=== PATIENT | female | born 1965 | race Caucasian/White ===

== ENCOUNTER 2017-07-04 19:47 | Emergency (ER) | payer OTHER ==
[2017-07-04] MEDS ORDERED: Ondansetron INJ* 2 MG/ML VIAL IV ONE (20:58)
[2017-07-04] MEDS ORDERED: Morphine INJ* 10 MG/ML 1 ML CARPUJECT IV ONE (20:58)
[2017-07-04] MEDS ORDERED: Pantoprazole IV* 40 MG IV ONE (21:00)
[2017-07-04 21:43] LABS: ABS Basophils 0.1 10^3/ul (0-0.2); ABS Eosinophils 0.1 10^3/ul (0-0.6); ABS Lymphocytes 3.7 10^3/ul (1.0-4.8); ABS Monocytes 0.9 10^3/ul (0-0.8); ABS Neutrophils 4.3 10^3/ul (1.5-7.7); ABS Nucleated RBC 0 10^3/ul; Eosinophil % 1.4 % (0-6); Hematocrit 36 % (35-47); Hemoglobin 12.2 g/dl (12.0-16.0); Lymphocyte % 40.4 % (25-47); Mean Corpuscular HGB Conc 34 g/dl (31-36); Mean Corpuscular Hemoglobin 30 pg (27-31); Mean Corpuscular Volume 89 fL (80-97); Mean Platelet Volume 8 um3 (7.4-10.4); Nucleated Red Blood Cells % 0.1; Platelet Count 297 10^3/ul (150-450); Red Blood Count 4.06 10^6/ul (4.0-5.4); Red Cell Distribution Width 15 % (10.5-15); White Blood Count 9.1 10^3/ul (3.5-10.8)
--- NOTE | 2017-07-04 21:50 | RAD ---
Indication: Chest pain. Single frontal view of the chest performed at 2123 hours was reviewed. No prior study is available for comparison. No mediastinal shift is noted. Heart is of normal size and configuration. Lung lazaro appear clear. IMPRESSION: NO ACTIVE CARDIOPULMONARY DISEASE IS NOTED.
[2017-07-04 21:55] LABS: INR 0.98 (0.77-1.02)
[2017-07-04 22:01] LABS: EGFR Non-African American 60.1 (>60)
[2017-07-04] MEDS ORDERED: Metoclopramide IV* 5 MG/ML 2 ML VIAL IV SLOW PU ONE (22:13)
[2017-07-05 03:21] VITALS: BP 92/59
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
== END 2017-07-05 03:22 | disposition home or self-care (01) ==
LOC: ED 19:47
DX: R07.89 Other chest pain (principal); R06.4 Hyperventilation; R11.0 Nausea; R51 Headache
CPT/HCPCS: 36415; 71045; 80053; 82150; 83605; 83690; 83735; 84484; 85025; 85610; 85730; 93005; 96374; 96375; 99284; J2270; J2405; J2765